=== PATIENT | male | born 1990 | race Caucasian/White ===

== ENCOUNTER 2019-07-26 20:29 | Emergency (ER) | payer OTHER ==
--- NOTE | 2019-07-26 21:47 | XRAY Report ---
Reason: cough Procedure Date: 07/26/2019 Accession Number: [id number] / [id number] Procedure: XR - Chest 2 View X-Ray CPT Code: 11537 Final Report FULL RESULT: EXAM: CHEST RADIOGRAPHY EXAM DATE: 07/26/2019 09:39 PM. CLINICAL HISTORY: Cough. COMPARISON: None. TECHNIQUE: 2 views. FINDINGS: Lungs/Pleura: A hazy opacity in left upper hemithorax could reflect interstitial viral pneumonia in appropriate clinical setting. No pleural effusion. No pneumothorax. Normal volumes. Mediastinum: Heart and mediastinal contours are unremarkable. Other: None. IMPRESSION: A hazy opacity in left upper hemithorax could reflect interstitial viral pneumonia in appropriate clinical setting. RADIA
[2019-07-26] MEDS ORDERED: DOXYCYCLINE 100 MG TABLET PO STA (22:05)
--- NOTE | 2019-07-26 22:06 | ED Physician Documentation ---
PD HPI URI - Stated complaint Stated Complaint: ACHE/COUGH/RUN DOWN/FEVER - Chief complaint Chief Complaint: Resp - History obtained from History obtained from: Patient - History of Present Illness Timing - onset: How many weeks ago (2) Timing duration: Weeks (2) Timing details: Gradual onset Pain level max: 5 Pain level now: 4 Associated symptoms: Chills, Nasal congestion, Rhinorrhea, Dry cough. No: Fever, Hemoptysis, Chest pain, NVD Contributing factors: Sick contact Improves by: Rest Worsened by: Activity, Breathing Recently seen: Not recently seen Review of Systems Constitutional: reports: Chills Respiratory: reports: Cough GI: denies: Vomiting Skin: denies: Rash PD PAST MEDICAL HISTORY - Past Medical History Past Medical History: No Cardiovascular: None Respiratory: Other Neuro: None Endocrine/Autoimmune: None GI: None : None HEENT: None Psych: None Musculoskeletal: None Derm: None Other Past Medical History: SPONTANEOUS PNEUMOTHORAX X 2013.... - Past Surgical History Past Surgical History: Yes General: Other Ortho: Other - Present Medications Home Medications: Ambulatory Orders Medication Instructions Recorded Confirmed Doxycycline Hyclate 100 mg PO BID #20 capsule 07/26/19 - Allergies Allergies/Adverse Reactions: Allergies Allergy/AdvReac Type Severity Reaction Status Date / Time No Known Drug Allergies Allergy Verified 07/26/19 22:06 - Social History Does the pt smoke?: No Smoking Status: Never smoker Does the pt drink ETOH?: Yes Does the pt have substance abuse?: No - Immunizations Immunizations are current?: Yes - POLST Patient has POLST: No PD ED PE NORMAL - Vitals Vital signs reviewed: Yes - General General: Alert and oriented X 3, No acute distress, Well developed/nourished - HEENT HEENT: Ears normal, Moist mucous membranes, Pharynx benign - Neck Neck: Supple, no meningeal sign - Cardiac Cardiac: RRR, Strong equal pulses - Respiratory Respiratory: No respiratory distress, Clear bilaterally - Abdomen Abdomen: Soft, Non tender, Non distended - Derm Derm: Warm and dry, No rash - Neuro Neuro: Alert and oriented X 3 - Psych Psych: Normal mood, Normal affect Results - Vitals Vitals: Vital Signs - 24 hr 07/26/19 22:10 Temperature 38.0 C H Heart Rate 92 Respiratory 17 Rate Blood Pressure 120/84 H O2 Saturation 92 Oxygen O2 Source Room air - Rads (name of study) cxr Radiology: Prelim report reviewed, EMP read contemporaneously, See rad report (A hazy opacity in left upper hemithorax could reflect interstitial viral pneumonia in appropriate clinical setting. ) PD MEDICAL DECISION MAKING - ED course Complexity details: reviewed results, re-evaluated patient, considered differential, d/w patient ED course: Patient is well-appearing, nontoxic. Afebrile. No hypoxia. Possible pneumonia on chest x-ray. Will place on antibiotics for this. Patient counseled regarding signs and symptoms for which I believe and urgent re-evaluation would be necessary. Patient with good understanding of and agreement to plan and is comfortable going home at this time This document was made in part using voice recognition software. While efforts are made to proofread this document, sound alike and grammatical errors may occur. Departure - Departure Disposition: 01 Home, Self Care Clinical Impression: Pneumonia Qualifiers: Pneumonia type: due to unspecified organism Laterality: left Lung location: upper lobe of lung Qualified Code(s): J18.9 - Pneumonia, unspecified organism Condition: Good Instructions: ED Pneumonia Adult Follow-Up: RENETTA MARTINEZ MD [Primary Care Provider] - Within 1 week Prescriptions: Doxycycline Hyclate 100 mg PO BID #20 capsule Comments: Take all antibiotics until gone. return if you worsen. Discharge Date/Time: 07/26/19 22:24
[2019-07-26 22:11] VITALS: BP 120/84
== END 2019-07-26 22:24 | disposition home or self-care (01) ==
LOC: ED 20:29
DX: J18.9 Pneumonia, unspecified organism (principal)
CPT/HCPCS: 71046; 99283; 99284; A9270